=== PATIENT | female | born 1980 | race Caucasian/White ===

== ENCOUNTER 2023-10-07 09:09 | Outpatient (OUT) | payer OTHER, SELFPAY ==
--- NOTE | 2023-10-07 09:25 | MM_ITS ---
Patient Name: REBECCA MIRANDA MR#: [id number] : 1980 Exam Date: 10/07/2023 Ordering Doctor: DR. JAYCOB HUDDLESTON D.O. RADIOLOGY REPORT PROCEDURE: MM TOMOSYNTHESIS SCREENING BI COMPARISON: MG MAMM SCREEN KARTHIK W CAD, 08/31/2020. MG MAMM SCREEN 3D KARTHIK CAD, 09/06/2021. INDICATIONS: Screening Calculator Name NCI Breast Cancer Risk Assessment Tool 5 Year Breast Cancer Risk 1.00% Lifetime Breast Cancer Risk 11.90% Personal Breast Cancer No Personal Ovarian Cancer No Treatments None Family Cancers Father with prostate cancer at age ~55. LOCATION: [facility] BREAST COMPOSITION: Extremely dense, which lowers the sensitivity of mammography. FINDINGS: DIAGNOSTIC CATEGORY 0--INCOMPLETE: NEED ADDITIONAL IMAGING EVALUATION. Scattered benign-appearing nodules are present. Scattered benign-appearing lymph nodes are present. RIGHT BREAST: New cluster pleomorphic calcifications identified in the 12 o'clock position, mid breast. Spot magnification and ultrasound follow-up is recommended LEFT BREAST: No significant suspicious finding. RECOMMENDATIONS: ADDITIONAL MAMMOGRAPHIC VIEWS REQUIRED: RIGHT BREAST - magnification ULTRASOUND: RIGHT BREAST PLEASE NOTE: A NORMAL MAMMOGRAM DOES NOT EXCLUDE THE POSSIBILITY OF BREAST CANCER. A CLINICALLY SUSPICIOUS PALPABLE LUMP SHOULD BE BIOPSIED. Dictated by: Jose Swain MD on 10/07/2023 at 11:11 Approved by: Jose Swain MD on 10/07/2023 at 11:33
[2023-10-07 10:06] LABS: TSH W/ REFLEX FT4 2.361 uIU/mL (0.358-3.740)
[2023-10-08 04:08] LABS: DHEA-Sulfate 91.5 ug/dL (41.2-243.7); Progesterone <0.1 ng/mL (.)
[2023-10-09 14:15] LABS: Calcitriol(1,25 di-OH Vit D) 58.4 pg/mL (24.8-81.5)
[2023-10-09 18:07] LABS: Estrone, Serum 10 pg/mL (.)
[2023-10-16 02:11] LABS: Free Testosterone(Direct) 0.6 pg/mL (0.0-4.2); Testosterone <3 ng/dL (4-50)
== END 2023-10-07 09:10 | disposition home or self-care (01) ==
LOC: LAB 09:09
PROVIDERS: Visit Provider Obstetrics & Gynecology
DX: Z12.31 Encounter for screening mammogram for malignant neoplasm of breast (principal); R45.86 Emotional lability; N91.2 Amenorrhea, unspecified; N95.1 Menopausal and female climacteric states; Z80.42 Family history of malignant neoplasm of prostate; R92.8 Other abnormal and inconclusive findings on diagnostic imaging of breast
CPT/HCPCS: 36415; 77063; 77067; 82533; 82627; 82652; 82679; 84144; 84402; 84403; 84443

== ENCOUNTER 2023-10-23 10:55 | Outpatient (OUT) | payer OTHER, SELFPAY ==
--- NOTE | 2023-10-23 11:04 | MM_ITS ---
Patient Name: REBECCA MIRANDA MR#: [id number] : 1980 Exam Date: 10/23/2023 Ordering Doctor: DR. JAYCOB HUDDLESTON D.O. RADIOLOGY REPORT PROCEDURE: MM DIAGNOSTIC MAMMO UNILAT RT, 10/23/2023, 11:07 US BREAST RT LIMITED, 10/23/2023, 12:15 COMPARISON: MM TOMOSYNTHESIS SCREENING BI, 10/07/2023. MG MAMM SCREEN 3D KARTHIK CAD, 09/06/2021. MG MAMM SCREEN KARTHIK W CAD, 08/31/2020. MG MAMM SCREEN KARTHIK W CAD, 09/02/2019. INDICATIONS: Abnormal Mammogram Calculator Name NCI Breast Cancer Risk Assessment Tool 5 Year Breast Cancer Risk 1.00% Lifetime Breast Cancer Risk 11.90% Personal Breast Cancer No Personal Ovarian Cancer No Treatments None Family Cancers Father with prostate cancer at age ~55. LOCATION: [facility] BREAST COMPOSITION: Extremely dense, which lowers the sensitivity of mammography. FINDINGS: DIAGNOSTIC CATEGORY 3--PROBABLY BENIGN FINDING. THE FOLLOWING FINDING(S) HAS A HIGH PROBABILITY OF A BENIGN ETIOLOGY: RIGHT BREAST: Spot magnification views demonstrate persistence of 2 adjacent clusters of predominantly coarse calcifications within the upper central breast approximately 12 o'clock, just above nipple line. No appreciable associated mass or architectural distortion. Ultrasound evaluation demonstrates the cluster of calcifications; no associated soft tissue mass or architectural distortion. While the calcifications are new compared to 202 there coarse appearance favors benign etiology. As a precautionary measure follow-up diagnostic mammography of right breast in 6 months is recommended to document stability. RECOMMENDATIONS: SHORT TERM FOLLOW-UP DIAGNOSTIC MAMMOGRAM RIGHT BREAST IN 6 MONTHS. PLEASE NOTE: A NORMAL MAMMOGRAM DOES NOT EXCLUDE THE POSSIBILITY OF BREAST CANCER. A CLINICALLY SUSPICIOUS PALPABLE LUMP SHOULD BE BIOPSIED. Dictated by: Gonzalez Mckeon M.D. on 10/23/2023 at 12:44 Approved by: Gonzalez Mckeon M.D. on 10/23/2023 at 13:52
--- NOTE | 2023-10-23 11:47 | US_ITS ---
Patient Name: REBECCA MIRANDA MR#: [id number] : 1980 Exam Date: 10/23/2023 Ordering Doctor: DR. JAYCOB HUDDLESTON D.O. RADIOLOGY REPORT PROCEDURE: MM DIAGNOSTIC MAMMO UNILAT RT, 10/23/2023, 11:07 US BREAST RT LIMITED, 10/23/2023, 12:15 COMPARISON: MM TOMOSYNTHESIS SCREENING BI, 10/07/2023. MG MAMM SCREEN 3D KARTHIK CAD, 09/06/2021. MG MAMM SCREEN KARTHIK W CAD, 08/31/2020. MG MAMM SCREEN KARTHIK W CAD, 09/02/2019. INDICATIONS: Abnormal Mammogram Calculator Name NCI Breast Cancer Risk Assessment Tool 5 Year Breast Cancer Risk 1.00% Lifetime Breast Cancer Risk 11.90% Personal Breast Cancer No Personal Ovarian Cancer No Treatments None Family Cancers Father with prostate cancer at age ~55. LOCATION: [facility] BREAST COMPOSITION: Extremely dense, which lowers the sensitivity of mammography. FINDINGS: DIAGNOSTIC CATEGORY 3--PROBABLY BENIGN FINDING. THE FOLLOWING FINDING(S) HAS A HIGH PROBABILITY OF A BENIGN ETIOLOGY: RIGHT BREAST: Spot magnification views demonstrate persistence of 2 adjacent clusters of predominantly coarse calcifications within the upper central breast approximately 12 o'clock, just above nipple line. No appreciable associated mass or architectural distortion. Ultrasound evaluation demonstrates the cluster of calcifications; no associated soft tissue mass or architectural distortion. While the calcifications are new compared to 202 there coarse appearance favors benign etiology. As a precautionary measure follow-up diagnostic mammography of right breast in 6 months is recommended to document stability. RECOMMENDATIONS: SHORT TERM FOLLOW-UP DIAGNOSTIC MAMMOGRAM RIGHT BREAST IN 6 MONTHS. PLEASE NOTE: A NORMAL MAMMOGRAM DOES NOT EXCLUDE THE POSSIBILITY OF BREAST CANCER. A CLINICALLY SUSPICIOUS PALPABLE LUMP SHOULD BE BIOPSIED. Dictated by: Gonzalez Mckeon M.D. on 10/23/2023 at 12:44 Approved by: Gonzalez Mckeon M.D. on 10/23/2023 at 13:52
== END 2023-10-23 10:56 | disposition home or self-care (01) ==
LOC: MAMMO 10:58
PROVIDERS: Visit Provider Obstetrics & Gynecology
DX: R92.8 Other abnormal and inconclusive findings on diagnostic imaging of breast (principal); Z80.42 Family history of malignant neoplasm of prostate
CPT/HCPCS: 76642; 77065

== ENCOUNTER 2024-06-03 09:33 | Outpatient (OUT) | payer OTHER, SELFPAY ==
--- NOTE | 2024-06-03 | MM_ITS ---
Patient Name: REBECCA MIRANDA MR#: [id number] : 1980 Exam Date: 06/03/2024 Ordering Doctor: DR. JAYCOB HUDDLESTON D.O. RADIOLOGY REPORT PROCEDURE: MM TOMOSYNTHESIS DIAGNOSTIC RT, 06/03/2024, 09:38 US BREAST RT LIMITED, 06/03/2024, 10:32 COMPARISON: MM DIAGNOSTIC MAMMO UNILAT RT, 10/23/2023. INDICATIONS: ABNORMAL MAMMOGRAM r92.8 Calculator Name NCI Breast Cancer Risk Assessment Tool 5 Year Breast Cancer Risk 1.10% Lifetime Breast Cancer Risk 11.80% Personal Breast Cancer No Personal Ovarian Cancer No Treatments None Family Cancers Father with prostate cancer at age ~55. LOCATION: [facility] BREAST COMPOSITION: The breasts are extremely dense, which lowers the sensitivity of mammography. FINDINGS: DIAGNOSTIC CATEGORY 2--BENIGN FINDING. NO CHANGE FROM COMPARISON. The right breast is stable in size and fibroglandular configuration. A cluster of calcifications is again observed in the upper outer quadrant, 9 o'clock, stable. Ultrasound demonstrates a few scattered calcifications. No new suspicious calcification, architectural distortion or mass. RECOMMENDATIONS: ROUTINE MAMMOGRAM AND CLINICAL EVALUATION IN 12 MONTHS. PLEASE NOTE: A NORMAL MAMMOGRAM DOES NOT EXCLUDE THE POSSIBILITY OF BREAST CANCER. A CLINICALLY SUSPICIOUS PALPABLE LUMP SHOULD BE BIOPSIED. Dictated by: Jose Swain MD on 06/03/2024 at 10:45 Approved by: Jose Swain MD on 06/03/2024 at 10:52
--- OUTSIDE RECORDS SUMMARY | 2024-06-03 09:41 | XMS_ITS | CCD ---
Author Organization [facility] Inform ion Partnership [facility] Care Team Providers Care Steno Typist Name Role Phone TIM RYAN Didi Unavailable Unavailable FILIBERTO, DR LINDA Meadows Admitting Unavailable DE LOS SANTOS, DR LINDA Meadows Primary Care Unavailable FILIBERTO, DR LINDA Meadows Consulting Unavailable DE LOS SANTOS, DR LINDA Meadows Attending Unavailable DANIA, DR DAVID Attending Unavailable DE LOS SANTOS, DR LINDA Meadows Primary Care Unavailable DANIA, DR DAVID Admitting Unavailable KARDARIN, DR DAVID Consulting Unavailable Bridget Plummer Unavailable JAYCOB HUDDLESTON Attending Unavailable Medications Current Medications Medication Drug Class(es) Dates Sig (Normalized) Sig (Original) doxycycline hyclate 100 mg oral tablet (1 source) Tetracycline-class Drug Start: 10-27-2022 take 1 tablet by mouth every twelve hours Doxycycline Hyclate 100 MG 1 tablet Orally Twice a day for 10 day(s) Oct, Active fluticasone propionate 0.05 mg/actuat metered dose nasal spray (1 source) Corticosteroid Start: 10-27-2022 take 2 spray(s) nasal route once daily Fluticasone Propionate 50 MCG/ACT 2 sprays Nasally Once a day for 14 day(s) Oct, Active predniSONE 20 mg oral tablet (1 source) Start: 10-27-2022 take 1 tablet by mouth every twelve hours predniSONE 20 MG 1 tablet Orally 2 times a day for 5 day(s) Oct, Active Problems Problem Classification Problem Date Documented Date Episodic/Chronic Immunizations and screening for infectious disease (1 source) Encounter for screening for human papillomavirus (HPV); Translations: [ENC SCREENING HUMAN PAPILLOMAVIRUS] Onset: 09-30-2022 Episodic Other screening for suspected conditions (not mental disorders or infectious disease) (4 sources) Encounter for screening for malignant neoplasm of cervix; Translations: [ENC SCREENING MALIG NEOPLASM CERV] Onset: 09-29-2022 Episodic Other upper respiratory infections (1 source) Acute sinusitis, unspecified Episodic Residual codes; unclassified (1 source) Flushing; Translations: [FLUSHING] Onset: 07-13-2022 Episodic Results Test Name Value Interpretation Reference Range Facil ity CHLAMYDIA/GONOCOCCUS MYCHAL (SW AB/URINE/PAPon 10-02-2022 Chlamydia trachomatis, MYCHAL Negative Normal Negative [facility] Comment on above: Performed By: #### C T/NGNA #### [facility] [address] [address] [address] Shauna Dodd Neisseria gonorrhoeae, MYCHAL Negative Normal Negative [facility] Comment on above: Performed By: #### C T/NGNA #### [facility] [address] [place] [address] Dr. Shauna Dodd PAP ACOG PANEL 2: 30 to 65on 10-02-2022 . . Normal [facility] Comment on above: Result Comment: Perf ormed at: WB Performed By: #### [id number] #### [facility] [address] [place] [address] Dr. Shauna Dodd Age Gdln ACOG Testing 30-65 Normal [facility] Comment on above: Performed By: #### [id number] #### [facility] [address] [place] [address] Dr. Shauna Dodd DIAGNOSIS: Comment Normal [facility] Comment on above: Result Comment: NEGA TIVE FOR INTRAEPITHELIAL LESION OR MALIGNANCY. Performed at: WB Performed By: #### [id number] #### [facility] [address] [place] [address] Dr. Shauna Dodd HPV Aptima Negative Normal Negative [facility] Comment on above: Result Comment: This nucleic acid amplification test detects fourteen high-risk HPV types (16,18,31,33,35,39,45,51,52,56,58,59,66,68) without differentiation. Performed at: =G Performed By: #### [id number] #### [facility] [address] [place] [address] Dr. Shauna Dodd HPV Genotype Reflex Comment Normal [facility] Comment on above: Result Comment: Crit eria not met, HPV Genotype not performed. Performed at: WB Performed By: #### [id number] #### [facility] [address] [place] [address] Dr. Shauna Dodd Methodology: Comment Normal [facility] Comment on above: Result Comment: This liquid based ThinPrep(R) pap test was screened with the use of an image guided system. Performed at: WB Performed By: #### [id number] #### [facility] [address] [place] [address] Dr. Shauna Dodd Note: Comment Normal [facility] Comment on above: Result Comment: The Pap smear is a screening test designed to aid in the detection of premalignant and malignant conditions of the uterine cervix. It is not a diagnostic procedure and should not be used as the sole means of detecting cervical cancer. Both false-positive and false-negative reports do occur. . Performed at: WB Performed By: #### [id number] #### [facility] [address] [place] [address] Dr. Shauna Dodd Performed by: Comment Normal [facility] Comment on above: Result Comment: Rere Hernandez, Craft Worker Performed at: WB Performed By: #### [id number] #### [facility] [address] [place] [address] Dr. Shauna Dodd Specimen adequacy: Comment Normal [facility] Comment on above: Result Comment: Sati sfactory for evaluation. Endocervical and/or squamous metaplastic cells (endocervical component) are present. Performed at: WB Performed By: #### [id number] #### [facility] [address] [address] [address] Shauna Dodd VAGINITIS/VAGINOSIS DNA PROB Attila 10-01-2022 [place] species Negative Normal Negative [facility] Comment on above: Performed By: #### V AGINT #### [facility] [address] [place] [address] Dr. Shauna Dodd Gardnerella vaginalis Negative Normal Negative [facility] Comment on above: Performed By: #### V AGINT #### [facility] [address] [place] [address] Dr. Shauna Dodd Trichomonas vaginalis Negative Normal Negative [facility] Comment on above: Performed By: #### V AGINT #### [facility] [address] [place] [address] Dr. Shauna Dodd ESTRADIOLon 07-11-2022 Estradiol 38.3 pg/mL Normal [facility] Comment on above: Result Comment: Adul t Female: Follicular phase 12.5 - 166.0 Ovulation phase 85.8 - 498.0 Luteal phase 43.8 - 211.0 Postmenopausal <6.0 - 54.7 1st trimester 215.0 - >4300.0 Alejo ECLIA methodology Performed By: #### E HENRY #### [facility] [address] [place] [address] Dr. Shauna Dodd FSHon 07-11-2022 FSH 32.5 mIU/mL Normal [facility] Comment on above: Result Comment: Adul t Female: Follicular phase 3.5 - 12.5 Ovulation phase 4.7 - 21.5 Luteal phase 1.7 - 7.7 Postmenopausal 25.8 - 134.8 Performed By: #### L BCFSH #### [facility] [address] [place] [address] Dr. Shauna Dodd LUTEINIZING HORMONE (LH)on LH 13.4 mIU/mL Normal [facility] Comment on above: Result Comment: Adul t Female: Follicular phase 2.4 - 12.6 Ovulation phase 14.0 - 95.6 Luteal phase 1.0 - 11.4 Postmenopausal 7.7 - 58.5 Performed By: #### L BCLH #### [facility] [address] [place] [address] Dr. Shauna Dodd CBC AUTO DIFFon 07-10-2022 BASO # 0.1 103/ul Normal 0.0-0.1 [facility] Comment on above: Performed By: #### C BC #### [facility] [address] [place] [address] Dr. Shauna Dodd Basophils/100 WBC (Bld) 0.8 % Normal 0.2-2.0 [facility] Comment on above: Performed By: #### C BC #### [facility] [address] [place] [address] Dr. Shauna Dodd EO # 0.2 103/ul Normal 0.0-0.7 [facility] Comment on above: Performed By: #### C BC #### [facility] [address] [place] [address] Dr. Shauna Dodd Eosinophils/100 WBC (Bld) 2.9 % Normal 0.9-7.0 [facility] Comment on above: Performed By: #### C BC #### [facility] [address] [place] [address] Dr. Shauna Dodd Erythrocyte distribution width (RBC) [Ratio] 12.5 % Normal 11.0-15.0 [facility] Comment on above: Performed By: #### C BC #### [facility] [address] [place] [address] Dr. Shauna Dodd Hematocrit (Bld) [Volume fraction] 39.4 % Normal 36.0-48.0 [facility] Comment on above: Performed By: #### C BC #### [facility] [address] [place] [address] Dr. Shauna Dodd Hemoglobin (Bld) [Mass/Vol] 12.6 g/dL Normal 12.0-16.0 [facility] Comment on above: Performed By: #### C BC #### [facility] [address] [place] [address] Dr. Shauna Dodd IG # 0.03 10e3/ul Normal 0.00-0.03 [facility] Comment on above: Performed By: #### C BC #### [facility] [address] [place] [address] Dr. Shauna Dodd IG % 0.4 % Normal 0.0-0.5 [facility] Comment on above: Performed By: #### C BC #### [facility] [address] [place] [address] Dr. Shauna Dodd LYMPH # 2.5 103/ul Normal 1.2-3.8 [facility] Comment on above: Performed By: #### C BC #### [facility] [address] [place] [address] Dr. Shauna Dodd Lymphocytes/100 WBC (Bld) 33.6 % Normal 20.5-60.0 [facility] Comment on above: Performed By: #### C BC #### [facility] [address] [place] [address] Dr. Shauna Dodd MANUAL DIFF REQ NO Normal [facility] Comment on above: Performed By: #### C BC #### [facility] [address] [place] [address] Dr. Shauna Dodd MCH (RBC) [Entitic mass] 30.1 pg Normal 26.7-34.0 [facility] Comment on above: Performed By: #### C BC #### [facility] [address] [place] [address] Dr. Shauna Dodd MCHC (RBC) [Mass/Vol] 32.0 g/dL Normal 29.9-35.2 [facility] Comment on above: Performed By: #### C BC #### [facility] [address] [place] [address] Dr. Shauna Dodd MCV (RBC) [Entitic vol] 94.0 fL Normal 81.0-99.0 [facility] Comment on above: Performed By: #### C BC #### [facility] [address] [place] [address] Dr. Shauna Dodd MONO # 0.6 103/ul Normal 0.3-0.8 [facility] Comment on above: Performed By: #### C BC #### [facility] [address] [place] [address] Dr. Shauna Dodd Monocytes/100 WBC (Bld) 7.4 % Normal 1.7-12.0 [facility] Comment on above: Performed By: #### C BC #### [facility] [address] [place] [address] Dr. Shauna Dodd NEUT # 4.1 103/ul Normal 1.4-6.5 [facility] Comment on above: Performed By: #### C BC #### [facility] [address] [address] [address] Shauna Dodd Neutrophils/100 WBC (Bld) 54.9 % Normal 43.0-75.0 [facility] Comment on above: Performed By: #### C BC #### [facility] [address] [address] [address] Shauna Dodd Platelet mean volume (Bld) [Entitic vol] 9.4 fL Critically low 9.5-13.5 [facility] Comment on above: Performed By: #### C BC #### [facility] [address] [address] [address] Shauna Dodd PLT 297 103/ul Normal 150-450 [facility] Comment on above: Performed By: #### C BC #### [facility] [address] [place] [address] Dr. Shauna Dodd RBC 4.19 106/ul Critically low 4.20-5.40 [facility] Comment on above: Performed By: #### C BC #### [facility] [address] [place] [address] Dr. Shauna Dodd WBC 7.6 103/ul Normal 4.0-11.0 [facility] Comment on above: Performed By: #### C BC #### [facility] [address] [place] [address] Dr. Shauna Dodd PROF CHEM 8 (BAS METB)on Anion gap [Moles/Vol] 9.5 mmol/L Normal [facility] Comment on above: Performed By: #### B MP, TSH #### [facility] [address] [place] [address] Dr. Shauna Dodd Calcium [Mass/Vol] 9.0 mg/dL Normal 8.5-10.1 [facility] Comment on above: Performed By: #### B MP, TSH #### [facility] [address] [address] [address] Shauna Dodd Chloride [Moles/Vol] 103 mmol/L Normal 98-107 [facility] Comment on above: Performed By: #### B MP, TSH #### [facility] [address] [address] [address] Shauna Dodd CO2 [Moles/Vol] 30.4 mmol/L Normal 21.0-32.0 [facility] Comment on above: Performed By: #### B MP, TSH #### [facility] [address] [address] [address] Shauna Dodd Creatinine [Mass/Vol] 0.88 mg/dL Normal 0.55-1.02 [facility] Comment on above: Performed By: #### B MP, TSH #### [facility] [address] [address] [address] Shauna Dodd EGFR-AF SWISS >60 Normal >=60 [facility] Comment on above: Performed By: #### B MP, TSH #### [facility] [address] [place] [address] Dr. Shauna Dodd EGFR-NON AF SWISS >60 Normal >=60 [facility] Comment on above: Performed By: #### B MP, TSH #### [facility] [address] [address] [address] Shauna Dodd Glucose [Mass/Vol] 93 mg/dL Normal 74-106 [facility] Comment on above: Performed By: #### B MP, TSH #### [facility] [address] [address] [address] Shauna Dodd Potassium [Moles/Vol] 3.9 mmol/L Normal 3.5-5.1 [facility] Comment on above: Performed By: #### B MP, TSH #### [facility] [address] [address] [address] Shauna Dodd Sodium [Moles/Vol] 139 mmol/L Normal 136-145 [facility] Comment on above: Performed By: #### B MP, TSH #### [facility] [address] [address] [address] Shauna Dodd Urea nitrogen [Mass/Vol] 16.0 mg/dL Normal 7.0-18.0 [facility] Comment on above: Performed By: #### B MP, TSH #### [facility] [address] [place], [place] [address] Dr. Shauna Dodd Urea nitrogen/Creatinine [Mass ratio] 18.2 mg/mg Normal [facility] Comment on above: Performed By: #### B MP, TSH #### [facility] [address] [place], [place] [address] Dr. Shauna Dodd TSHon 07-10-2022 TSH 2.898 uIU/mL Normal 0.358-3.740 [facility] Comment on above: Performed By: #### B MP, TSH #### [facility] [address] [address] [address] Shauna Dodd Vital Signs Date Time Vital Sign Value Performing Clinician Facility 10-27-2022 11:15-0500 Body height 162.56 cm Bridgetblake Plummer Other [facility] Other 10-27-2022 11:15-0500 Body mass index (BMI) [Ratio] 27.8 kg/m2 Bridget Kavitha Other [facility] Other 10-27-2022 11:15-0500 Body temperature 96.8 [degF] Bridget Kavitha Other [facility] Other 10-27-2022 11:15-0500 Body weight 73.48 kg Bridget Kavitha Other [facility] Other 10-27-2022 11:15-0500 Respiratory rate 18 /min Bridget Kavitha Other [facility] Other 10-27-2022 11:15-0500 SaO2% (BldA) [Mass fraction] 96.8 % Bridget Plummer Other [facility] Other Encounters Encounter Date Encounter Type Care Provider Facility Start: 09-30-2023 End: 09-30-2023 ambulatory JAYCOB J KARO Not Available Start: 10-27-2022 End: 10-27-2022 ambulatory Bridget Kavitha Other [facility] Other Start: 10-27-2022 Office outpatient ne w 20 minutes Bridget Kavitha [facility] Start: 09-29-2022 End: 09-29-[address] JOANN NAJERA Facility:[facility] Start: 07-13-2022 Encounter for genera l adult medical examination without abnormal findings DR LINDA DE LOS SANTOS [facility] Start: 07-10-2022 End: 07-11-[address] LINDA DE LOS SANTOS Facility:[facility] Start: 07-10-2022 End: 07-11-2022 Encounter for general adult medical examination without abnormal findings DR LINDA DE LOS SANTOS Facility:[facility] Start: 09-15-2017 Ambulatory TIM RYAN Facility: [id number] Payers Date Payer Category Payer Unknown [id number] 1980 Unknown [id number] 2.16.84 [id number] 1980 Unknown [id number] 2.16.84 [id number] 1978 Unknown [id number] 1959 Unknown [id number] Social History Date Type Detail Facility Sex Assigned At [facility] Other Evaluation note 10-27-2022 Note Date & Type Note Facility 10-27-2022 Evaluation note Encounter Date Diagnosis Assessment Notes Oct, Acute sinusitis, recurrence not specified, unspecified location (ICD-10 - J01.90) Sinusitis home care material was printed Drink plenty fluids, get plenty of rest. Take Tylenol or Motrin as needed for aches pains or fevers. Take the doxycycline as prescribed until gone. Take the prednisone as prescribed until gone. Use the Flonase inhaler as prescribed to your symptoms improved. Follow-up with your family physician for any further concerns. [facility] Other History general Narrative - Reported Note Date & Type Note Facility History general Narrative - Reported Type Surgical History D&C Hospitalization History Ovarian cyst [facility] Other Summary Purpose Family History No Family History Records FoundNo Family History Records FoundNo Family History Records Found Advance Directives No Advanced Directives Records FoundNo Advanced Directives Records FoundNo Advanced Directives Records Found Additional Source Comments INFORMATION SOURCE (unrecogn ized section and content) DATE CREATED AUTHOR 03/16/2018 [facility] DATE CREATED AUTHOR AUTHOR'S ORGANIZ ATION 10/02/2022 [facility] DATE CREATED AUTHOR AUTHOR'S ORGANIZ ATION 10/02/2023 [facility] EPIC REASON FOR VISIT (unrecogniz ed section and content) CONGESTION COUGH FOR RECORDS PERTAINING TO PATIENTS WHO ARE OR HAVE BEEN ENROLLED IN A CHEMICAL DEPENDENCY/SUBSTANCEABUSE PROGRAM, SOME INFORMATION MAY BE OMITTED. This clinical summary was aggregated from multiple sources. Caution should be exercised in using it in the provision of clinical care. This summary normalizes information from multiple sources, and as a consequence, information in this document may materially change the coding, format and clinical context of patient data. In addition, data may be omitted in some cases. CLINICAL DECISIONS SHOULD BE BASED ON THE PRIMARY CLINICAL RECORDS. [employer] provides no warranty or guarantee of the accuracy or completeness of information in this document.
== END 2024-06-03 09:34 | disposition home or self-care (01) ==
LOC: MAMMO 09:33
PROVIDERS: Visit Provider Obstetrics & Gynecology
DX: R92.8 Other abnormal and inconclusive findings on diagnostic imaging of breast (principal); Z80.42 Family history of malignant neoplasm of prostate
CPT/HCPCS: 76642; 77065; G0279

== ENCOUNTER 2025-04-11 14:57 | Outpatient (RCR) | payer OTHER, SELFPAY | END 2025-04-26 07:45 | disposition home or self-care (01) | LOC: PT 14:57 | PROVIDERS: PCP Family Medicine; Visit Provider Family Medicine | DX: H81.319 Aural vertigo, unspecified ear (principal) | CPT/HCPCS: 97110; 97140; 97161 ==